=== PATIENT | male | born 1990 | race Caucasian/White ===

== ENCOUNTER 2017-04-22 13:17 | Emergency (ER) | payer OTHER ==
[~2017-04-22] VITALS: Ht 172.7 cm; Wt 63.6 kg
[2017-04-22 13:25] VITALS: BP 144/79; PULSE 70; RESP 18; O2SAT 100
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
[2017-04-22] MEDS ORDERED: 0.9% Sodium Chloride 1,000 ML IV ONE (13:48)
[2017-04-22 14:01] LABS: BASOPHILS % (AUTO) 0 % (0-3); EOSINOPHILS % (AUTO) 0 % (0-5); MONOCYTES % (AUTO) 6 % (4-12); Mean Corpuscular Hemoglobin 31.5 pg (27.0-35.0); Mean Corpuscular Volume 90.4 fL (81-100); NEUTROPHILS % (AUTO) 84 % (40-74); Platelet Count 204 bil/L (150-400)
[2017-04-22 14:07] LABS: INR 1.05 ratio
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
[2017-04-22] MEDS ORDERED: TdaP Vaccine 0.5 mL Inj IM ONE (15:15)
[2017-04-22 16:14] VITALS: BP 125/58; PULSE 83; RESP 14; O2SAT 100
== END 2017-04-22 16:16 | disposition home or self-care (01) ==
LOC: SED 13:17
DX: S60.811A Abrasion of right wrist, initial encounter (principal); S60.812A Abrasion of left wrist, initial encounter; M54.2 Cervicalgia; V86.59XA Driver of other special all-terrain or other off-road motor vehicle injured in nontraffic accident, initial encounter; Y93.9 Activity, unspecified; Y92.9 Unspecified place or not applicable; Y99.8 Other external cause status; K21.9 Gastro-esophageal reflux disease without esophagitis; Z88.1 Allergy status to other antibiotic agents; Z23 Encounter for immunization
CPT/HCPCS: 36415; 70450; 71010; 72125; 72170; 73070; 73110; 73551; 73560; 80053; 85025; 85610; 85730; 86850; 90471; 90715; 96360; 99285; G0480; J7030